=== PATIENT | female | born 1990 | race Two or more races ===

== ENCOUNTER 2022-12-17 23:42 | Emergency (ER) | payer SELFPAY ==
[~2022-12-17] VITALS: Ht 152.4 cm; Wt 47.6 kg
--- NOTE | 2022-12-18 01:22 | NUR ---
BIBFAMILY FROM HOME C/O LOWER ABD PAIN X1 DAY
--- NOTE | 2022-12-18 01:26 | NUR ---
URINE COLLECTED AND SENT TO LAB
[2022-12-18] MEDS ORDERED: IV NS 0.9% 1,000 ML BAG IV ONE (01:30)
[2022-12-18] MEDS ORDERED: KETOROLAC TROMETHAMINE INJ 30 MG/ML VIAL IV ONE (01:30)
--- NOTE | 2022-12-18 01:40 | NUR ---
DR. MULLINS AT BEDSIDE
[2022-12-18 01:44] LABS: BILIRUBIN,URINE NEGATIVE (NEGATIVE); COLOR,URINE YELLOW (YELLOW); LEUKOCYTE ESTERASE ,URINE NEGATIVE (NEGATIVE); NITRITE, URINE NEGATIVE (NEGATIVE); PROTEIN,URINE NEGATIVE (NEGATIVE); UGLUCOSE NEGATIVE (NEGATIVE); UROBILINOGEN,URINE 0.2 EU/dL (0.2)
[2022-12-18] MEDS ORDERED: KETOROLAC TROMETHAMINE INJ 30 MG/ML VIAL ONE (01:48)
--- NOTE | 2022-12-18 01:48 | NUR ---
20G IV STARTED ON R AC. BLOOD COLLECTED AND SENT TO LAB
[2022-12-18 01:53] LABS: BASOPHILS % (AUTO) 0.5 % (0.0-2.0); EOSINOPHILS % (AUTO) 1.4 % (0.0-6.0); HEMATOCRIT 25 % (33-45); HEMOGLOBIN 7.3 g/dL (11.5-14.8); LYMPHOCYTES # (AUTO) 1.5 K/uL (0.8-4.8); LYMPHOCYTES % (AUTO) 32.8 % (20.0-44.0); MEAN CORPUSCULAR HGB CONC 29 g/dl (31.0-36.0); MEAN CORPUSCULAR VOLUME 62 fL (82-100); MONOCYTES # (AUTO) 0.4 K/uL (0.1-1.30); MONOCYTES % (AUTO) 9.4 % (2.0-12.0); NEUTROPHILS # (AUTO) 2.5 K/uL (1.8-8.9); NEUTROPHILS % (AUTO) 55.9 % (43.0-81.0); PLATELET COUNT (AUTO) 301 K/uL (150-450); RED BLOOD CELL COUNT(AUTO) 4.08 MIL/uL (4.0-5.2); WHITE BLOOD COUNT (AUTO) 4.5 K/uL (4.3-11.0)
[2022-12-18 02:03] LABS: CALCIUM, SERUM 9.1 mg/dL (8.5-10.1); CREATININE 0.5 mg/dL (0.6-1.3); POTASSIUM 3.4 mmol/L (3.5-5.1)
--- NOTE | 2022-12-18 02:08 | NUR ---
PT TAKEN TO CT
[2022-12-18 02:09] LABS: ALBUMIN 4.1 g/dL (3.4-5.0); BILIRUBIN,DIRECT 0.3 mg/dL (0.0-0.2); BILIRUBIN,TOTAL 1.5 mg/dL (0.2-1.0); TOTAL PROTEIN, SERUM 7.6 g/dL (6.4-8.2)
--- NOTE | 2022-12-18 05:00 | NUR ---
CALLED [facility] FOR RESULTS FOR PT CT SCAN, STILL AWAITING RESULTS
[2022-12-18] MEDS ORDERED: FERR325T23 PO (05:46)
--- NOTE | 2022-12-18 06:50 | NUR ---
Patient discharged to home in stable condition. Written and verbal after care instructions given. Patient verbalizes understanding of instruction.IV removed. Catheter intact and site benign. Pressure and 4x4 applied to site. No bleeding noted.
[2022-12-18 06:51] VITALS: BP 98/62
== END 2022-12-18 06:51 | disposition home or self-care (01) ==
LOC: ER 23:45
DX: R10.2 Pelvic and perineal pain (principal); R10.33 Periumbilical pain; D64.9 Anemia, unspecified
CPT/HCPCS: 99285; 74176; 96374; 96361; 85025; 80048; 83690; 80076; 84703; 81003; 36415; J1885; J7030